=== PATIENT | male | born 1960 | race African-American/Black ===

== ENCOUNTER 2025-02-01 13:25 | Emergency (ER) | payer BC ==
[~2025-02-01] VITALS: Ht 175.3 cm; Wt 115.0 kg
[2025-02-01 14:24] LABS: Basophils # (auto) 0 10 ^3/uL (0-0.2); Eosinophils # (auto) 0.1 10 ^3/uL (0-0.8); Eosinophils % (auto) 2.5 % (0.0-7.0); Hemoglobin 14.5 g/dL (13.5-17.5); Nucleated Red Blood Cells % 0.1 %
[2025-02-01 14:26] LABS: Basophils % (auto) 0.7 % (0.0-2.0); Hematocrit 45.3 % (41.0-53.0); Lymphocytes # (auto) 1.4 10 ^3/uL (0.4-5.4); Mean Corpuscular Hemoglobin 23.4 pg (28.0-32.0); Mean Corpuscular Volume 73.2 fL (80.0-100.0); Monocytes # (auto) 0.5 10 ^3/uL (0-1.3); Monocytes % (auto) 9.7 % (0.0-12.0); Neutrophils # (auto) 3.5 10 ^3/uL (1.6-8.6); Neutrophils % (auto) 62.1 % (37.0-80.0); Platelet Count (auto) 121 10^3/uL (140-450); Red Blood Cells 6.19 10^6/uL (4.5-5.90); Red Cell Distribution Width 15.2 % (11.8-14.3); White Blood Cell 5.6 10^3/uL (4.4-10.8)
[2025-02-01 14:41] LABS: Alanine Aminotransferase 20 U/L (7-40); Albumin 4.4 g/dL (3.2-4.8); Alkaline Phosphatase 76 U/L (46-116); Anion Gap 9 (5-15); Aspartate Aminotransferase 17 U/L (13-40); BUN/Creatinine Ratio 14.2 (10.0-20.0); Bilirubin, Total 0.9 mg/dL (0.2-1.0); Blood Urea Nitrogen 15 mg/dL (9-23); Calcium 9.8 mg/dL (8.7-10.4); Carbon Dioxide 26 mmol/L (20-31); Chloride 105 mmol/L (98-107); Glucose 87 mg/dL (74-106); Lipase 22 U/L (12-53); Potassium 4.1 mmol/L (3.5-5.1); Sodium 140 mmol/L (136-145)
--- NOTE | 2025-02-01 15:01 | DVH ---
CT ABDOMEN AND PELVIS WITHOUT CONTRAST CLINICAL HISTORY: abd pain TECHNIQUE: Multiple contiguous axial images of the abdomen and pelvis without intravenous contrast. T he images were reformatted degenerate coronal and sagittal reconstructions. All CT scans at this medical facility are performed using dose modulation techniques as appropriate t o a performed exam including the following:Automated exposure control was utilized; adjustment of the MA and/or KV according to patient size; and use of iterative reconstruction technique. Radiation Dose Information: CT Dose: CTDI volume is 21.36 mGy. Dose-length product is 1172.31 mGy*cm Comparison: None FINDINGS: Evaluation of the abdomen and pelvis is limited without intravenous contrast. There is a 7 mm calculus in the lower pole of the left kidney. There is no right renal calculus. The re is no hydronephrosis. There is a 1.2 cm cyst in the upper pole of the left kidney. There is no diego dence of a ureteral calculus or hydroureter. Gallbladder is surgically absent. There is fatty infiltration of the liver. The pancreas, adrenal glands, and spleen appear within normal limits. There is no gross evidence of abdominal lymphadenopathy. There is no free fluid or free air. The stomach grossly appears unremarkable. The small and large bowel loops demonstrate normal caliber . A normal appearing appendix is seen in the right lower quadrant abdomen. The abdominal aorta and IVC appear within normal limits. The bladder appears unremarkable for the degree of distention. Pelvic organ appears within normal melchor its. There is no gross evidence of a pelvic mass. There is no free fluid collection. Lung bases are clear. There is no acute osseous abnormality. IMPRESSION: 1. There is no acute process in the abdomen and pelvis. 2. 7 mm nonobstructive left lower pole renal calculus. 3. Hepatic steatosis. HS:Y
[2025-02-01 16:37] VITALS: PULSE 66; RESP 18; O2SAT 94
--- NOTE | 2025-02-01 16:58 | ED.PDOC ---
GI ASSESSMENT HPI Comments 64y M who presents to the ED for chief complaint of abdominal cramping. Pt states he has been having upper abdominal pain for the past few weeks. Pt states the pain is intermittent, cramping in nature , with associated exacerbation of pain with movement such as bending forward to tie his shoes and relieved by rest. Patient states the symptoms last only a few seconds. Pt denies any associated symptoms but otherwise denies nausea, vomiting, diarrhea, fever, cough, chills, dysuria, hematuria, chest pain or shortness of breath. Pt states he notices these cramping like episodes when he moves from sitting to standing or from bending over for a quick second and the pain goes away immediately. Pt states he has noted history of HTN but states he has not seen a PCP in many years. Pt in the ED, has noted BP of 158/97 but otherwise has noted stable vitals with temp of 98.0F, rr 18 , heart rate of 66 and 02 sat of 95% on room air. Pt otherwise denies any other symptoms at this time. Chief Complaint: Abdominal Pain Time Seen by MD: 16:56 Reviewed Notes: Medications, Allergies Allergies: Coded Allergies: NO KNOWN ALLERGIES (Unverified , 02/01/25) Home Meds Active Scripts Dicyclomine Hcl (BENTYL CAPSULE) 10 Mg Cp, 2 CAP PO Q6HP PRN, #30 CAP 11 Refills prn abdominal crampimg Prov:REY RAMIRES MD 02/01/25 Information Source: Patient Mode of Arrival: Ambulatory Brought in by: self Past Medical History PAST MEDICAL HISTORY: HTN Surgical History (Other): bone spurs Family History Family History: Reviewed,noncontributory to illness Social History Smoker: Non-Smoker Alcohol: Denies ETOH Use Drugs: Denies Drug Use Lives In: Home Constitutional: denies: chills, diaphoresis, fatigue, fever, malaise, sweats, weakness, others EENTM: denies: blurred vision, double vision, ear bleeding, ear discharge, ear drainage, ear pain, ear ringing, eye pain, eye redness, hearing loss, mouth pain, mouth swelling, nasal discharge, nose bleeding, nose congestion, nose pain, photophobia, tearing, throat pain, throat swelling, voice changes, others Respiratory: denies: cough, hemoptysis, orthopnea, SOB at rest, shortness of breath, SOB with excertion, stridor, wheezing, others Cardiovascular: denies: chest pain, dizzy spells, diaphoresis, Dyspnea on exertion, edema, irregular heart beat, left arm pain, lightheadedness, palpitations, PND, syncope, others Gastrointestinal: reports: abdominal pain; denies: abdomen distended, blood streaked bowels, constipated, diarrhea, dysphagia, difficulty swallowing, hematemesis, melena, nausea, poor appetite, poor fluid intake, rectal bleeding, rectal pain, vomiting, others Genitourinary: denies: burning, dysuria, flank pain, frequency, hematuria, incontinence, penile discharge, penile sore, pain, testicle pain, testicle swelling, urgency, others Neurological: denies: dizziness, fainting, headache, left sided numbness, left sided weakness, numbness, paresthesia, pre-existing deficit, right sided numbness, right sided weakness, seizure, speech problems, tingling, tremors, weakness, others Musculoskeletal: denies: back pain, gout, joint pain, joint swelling, muscle pain, muscle stiffness, neck pain, others Integumetry: denies: bruises, change in color, change in hair/nails, dryness, laceration, lesions, lumps, rash, wounds, others Allergic/Immunocompromised: denies: Difficulty Healing, Frequent Infections, Hives, Itching, others Hematologic/Lymphatic: denies: anemia, blood clots, easy bleeding, easy bruising, swollen glands, others Endocrine: denies: excessive hunger, excessive sweating, excessive thirst, excessive urination, flushing, intolerance to cold, intolerance to heat, unexplained weight gain, unexplained weight loss, others Psychiatric: denies: anxiety, bipolar disorder, depression, hopeless, panic disorder, schizophrenia, sleepless, suicidal, others All Other Systems: Reviewed and Negative Physical Exam General Appearance: No Apparent Distress HEENT: PERRL/EOMI Neck: Full Range of Motion, Normal Inspection Respiratory: Lungs Clear, No Accessory Muscle Use, No Respiratory Distress, Normal Breath Sounds Cardiovascular: No Edema, No JVD, Regular Rate/Rhythm Breast Exam: Deferred Gastrointestinal: Non Tender, Soft Genitalia: Deferred Pelvic: Deferred Rectal: Deferred Extremities: Normal inspection, Normal range of motion, Non-tender, No pedal edema Neurologic: Alert (Oriented x4), Normal Affect, Normal Mood, Other (Ambulatory. No gross focal deficit.) Cerebellar Function: NOT DONE Reflexes: NOT DONE Skin: Dry, Normal Color, Warm Lymphatic: NOT DONE EKG EKG : Comments Sinus rhythm, rate 69, normal PA interval, QRS prolonged at 142, normal QTC interval, left axis deviation, right bundle-branch block and left anterior fascicular block, anteroseptal T inversion Was a procedure done? Was a procedure done?: No GI differential Dx Differential Diagnosis: Constipation, Gastritis/PUD, Gastroenteritis, Inflammatory BD, Pancreatitis, UTI, Dehydration, Electrolyte Imbalance, Food Poisoning, Bacterial, Viral, Ischemic Bowel, Stress Ulcer, Kidney Stone Other Differential Diagnosis musculoskeletal pain, ACS, MT, angina, arrhythmia, among others X-Ray, Labs, Meds, VS Vital Signs Date Time Temp Pulse Resp B/P (MAP) Pulse Ox O2 Delivery O2 Flow Rate FiO2 02/01/25 18:12 98.7 58 17 150/95 (113) 94 98.7 02/01/25 17:53 69 02/01/25 16:37 66 18 94 Room Air* 0 21 02/01/25 16:37 98.0 66 18 158/97 (117) 94 98.0 02/01/25 13:58 98.0 62 16 137/96 (110) 95 Lab Test 02/01/25 16:35 02/01/25 15:33 02/01/25 14:03 Range/Units Urine Color Yellow Yellow Urine Clarity Clear Clear Urine pH 6.0 5.0-9.0 Urine Specific [place] 1.022 1.001-1.035 Urine Protein Negative Negative Urine Ketones Negative Negative Urine Blood Negative Negative /uL Urine Nitrite Negative Negative Urine Bilirubin Negative Negative Urine Urobilinogen Normal Negative mg/dL Urine Leukocyte Esterase Negative Negative /uL Urine RBC 1 0 - 3 /hpf Urine Microscopic WBC 1 0-3 /HPF Urine Squamous Epithelial Cells Few <5 /hpf Urine Bacteria None seen None Seen /hpf Urine Mucus Few None Seen Urine Glucose Normal Normal mg/dL Troponin I High Sensitivity < 3 L < 3 L </=54 ng/L White Blood Count 5.6 4.4-10.8 10^3/uL Red Blood Count 6.19 H 4.5-5.90 10^6/uL Hemoglobin 14.5 13.5-17.5 g/dL Hematocrit 45.3 41.0-53.0 % Mean Corpuscular Volume 73.2 L 80.0-100.0 fL Mean Corpuscular Hemoglobin 23.4 L 28.0-32.0 pg Mean Corpuscular Hemoglobin Concent 32.0 32.0-36.0 g/dL Red Cell Distribution Width 15.2 H 11.8-14.3 % Platelet Count 121 L 140-450 10^3/uL Mean Platelet Volume 9.4 6.9-10.8 fL Neutrophils (%) (Auto) 62.1 37.0-80.0 % Lymphocytes (%) (Auto) 25.0 10.0-50.0 % Monocytes (%) (Auto) 9.7 0.0-12.0 % Eosinophils (%) (Auto) 2.5 0.0-7.0 % Basophils (%) (Auto) 0.7 0.0-2.0 % Neutrophils # (Auto) 3.5 1.6-8.6 10 ^3/uL Lymphocytes # (Auto) 1.4 0.4-5.4 10 ^3/uL Monocytes # (Auto) 0.5 0-1.3 10 ^3/uL Eosinophils # (Auto) 0.1 0-0.8 10 ^3/uL Basophils # (Auto) 0 0-0.2 10 ^3/uL Nucleated Red Blood Cells 0.1 % Sodium Level 140 136-145 mmol/L Potassium Level 4.1 3.5-5.1 mmol/L Chloride Level 105 98-107 mmol/L Carbon Dioxide Level 26 20-31 mmol/L Anion Gap 9 5-15 Blood Urea Nitrogen 15 9-23 mg/dL Creatinine 1.06 0.700-1.30 mg/dL Glomerular Filtration Rate Calc 77 >90 mL/min BUN/Creatinine Ratio 14.2 10.0-20.0 Serum Glucose 87 74-106 mg/dL Lactic Acid Level 1.4 0.4-2.0 mmol/L Calcium Level 9.8 8.7-10.4 mg/dL Total Bilirubin 0.9 0.2-1.0 mg/dL Aspartate Amino Transferase (AST) 17 13-40 U/L Alanine Aminotransferase (ALT) 20 7-40 U/L Alkaline Phosphatase 76 46-116 U/L B-Type Natriuretic Peptide 29.46 0-100 pg/mL Total Protein 7.0 5.7-8.2 g/dL Albumin 4.4 3.2-4.8 g/dL Lipase 22 12-53 U/L [address] [address] Ph: [phone] DIAGNOSTIC IMAGING Diagnostic Imaging Report : [id number] Signed PATIENT: CORTNEY ANDREWS ACCT: [id number] UNIT: [id number] : 1960 LOC: ER ROOM / BED: / AGE / SEX: 64 / M ADM STATUS: REG ER SERVICE 1346 ORDERING PHYSICIAN: REY RAMIRES MD PROCEDURE(s): ABPL - CT AB PEL WO CON-NO ORAL OR IV REASON: abd pain ORDER NUMBER(s): [id number], ACCESSION NUMBER(s): [id number] CT ABDOMEN AND PELVIS WITHOUT CONTRAST CLINICAL HISTORY: abd pain TECHNIQUE: Multiple contiguous axial images of the abdomen and pelvis without intravenous contrast. The images were reformatted degenerate coronal and sagittal reconstructions. All CT scans at this medical facility are performed using dose modulation techniques as appropriate to a performed exam including the following:Automated exposure control was utilized; adjustment of the MA and/or KV according to patient size; and use of iterative reconstruction technique. Radiation Dose Information: CT Dose: CTDI volume is 21.36 mGy. Dose-length product is 1172.31 mGy*cm Comparison: None FINDINGS: Evaluation of the abdomen and pelvis is limited without intravenous contrast. There is a 7 mm calculus in the lower pole of the left kidney. There is no right renal calculus. There is no hydronephrosis. There is a 1.2 cm cyst in the upper pole of the left kidney. There is no evidence of a ureteral calculus or hydroureter. Gallbladder is surgically absent. There is fatty infiltration of the liver. The pancreas, adrenal glands, and spleen appear within normal limits. There is no gross evidence of abdominal lymphadenopathy. There is no free fluid or free air. The stomach grossly appears unremarkable. The small and large bowel loops demonstrate normal caliber. A normal appearing appendix is seen in the right lower quadrant abdomen. The abdominal aorta and IVC appear within normal limits. The bladder appears unremarkable for the degree of distention. Pelvic organ appears within normal limits. There is no gross evidence of a pelvic mass. There is no free fluid collection. Lung bases are clear. There is no acute osseous abnormality. IMPRESSION: 1. There is no acute process in the abdomen and pelvis. 2. 7 mm nonobstructive left lower pole renal calculus. 3. Hepatic steatosis. HS:Y ATED BY: HECTOR JURADO MD DICTATED DATE/TIME: 02/01/251458 SIGNED BY: HECTOR JURADO MD SIGNED DATE/TIME: 02/01/251458 CC: X-Ray, Labs, Meds, VS Comment 64-year-old male with a history of hypertension complaining of abdominal cramping. Vitals remarkable for BP 137/96 Exam unremarkable Rhythm strip independently interpreted by me: Sinus rhythm, rate 62, no ectopy. CT abdomen and pelvis IMPRESSION: 1. There is no acute process in the abdomen and pelvis. 2. 7 mm nonobstructive left lower pole renal calculus. 3. Hepatic steatosis. CBC, CMP, lipase, UA, BNP and 2 serial troponins unremarkable for any abnormality of acute significance Patient declined any pain medication in the ED, stating he was not in any discomfort at rest. On re-evaluation, patient was well-appearing, pain-free with stable vitals. Patient appears stable for discharge with close outpatient follow-up to establish care with a primary physician. Rx Bentyl. Patient provided with referral to establish care with a primary physician. Time of 1ST Reevaluation: 17:30 Reevaluation 1ST: Unchanged Time of 2ND Reevaluation: 17:39 Reevaluation 2ND: Improved Patient Education/Counseling: Diagnosis, Treatment Family Education/Counseling: No Family Present Additional Information -Reviewed patient's previous visit(s): - The following tests were ordered, and results were reviewed by me: cbc, bmp, lipase,ua, ct abd pelvis non contrast, lactic acid, bnp. tropx2. - Additional information was gathered from interviewing the following independent Historian: patient - I reviewed and agreed with the following test results read by other provider: radiologist - I discussed treatments and results with medical personnel and: patient Comprehensive systems review obtained and negative except for what is stated in the HPI. Departure 1 Departure Time of Disposition: 17:39 Impression: Primary Impression: Abdominal cramping Disposition: 01 HOME / SELF CARE / HOMELESS Condition: Stable Referrals: JOSE BONILLA MD Additional Instructions: Your blood tests, including screening tests for heart attack and heart failure were unremarkable. Your urine test was unremarkable. Your EKG was unremarkable. Your CT scan did not show any abnormality that would explain your abdominal cramping. I have enclosed the report below. Follow-up in 1-2 days to establish care with a primary physician for further evaluation. I have prescribed medication for abdominal cramping to take as needed. e-Prescriptions Dicyclomine Hcl (BENTYL CAPSULE) 10 Mg Cp 2 CAP PO Q6HP PRN, #30 CAP 11 Refills prn abdominal crampimg Prov: REY RAMIRES MD 02/01/25 Discharged With: Self Critical Care Note Critical Care Time?: No Stability Stability form required: No Heart Score Heart Score: Heart Score Response (Comments) Value History N/A 0 EKG N/A 0 Age N/A 0 Risk Factors N/A 0 Troponin N/A 0 Total 0 I personally scribed for REY RAMIRES MD ([email or web address]) on 02/01/25 at 16:58. Electronically submitted by Peña Castillo ([email or web address]). I personally scribed for REY RAMIRES MD ([email or web address]) on 02/01/25 at 17:01. Electronically submitted by Peña Castillo ([email or web address]). REY RAMIRES MD Feb 01, 2025 16:58
[2025-02-01 16:59] LABS: Urine Bacteria None Seen /hpf (None Seen)
[2025-02-01 17:08] LABS: Urine Blood Negative /uL (Negative); Urine Clarity Clear (Clear); Urine Color Yellow (Yellow); Urine Mucus FEW (None Seen); Urine Protein, UAD Negative (Negative); Urine Specific Gravity 1.022 (1.001-1.035); Urine Squamous Epithelial Cell FEW /hpf (<5); Urine Urobilinogen Normal (Negative); Urine WBC 1 /HPF (0-3)
[2025-02-01] MEDS ORDERED: DICY10CA PO (17:45)
[2025-02-01 18:12] VITALS: BP 150/95; PULSE 58; RESP 17; TEMP 98.7; O2SAT 94
--- NOTE | 2025-02-02 13:01 | ECG ---
[facility] Test Date: 2025-02-01 Test Time: 17:53:19 Pat Name: CORTNEY ANDREWS Department: ER Room: Gender: M Manufacturing Baker: LUIS : 1960 Requested By: REY MAYO Order Number: [id number] Reading MD: Marek Mott Measurements Intervals [place] Rate: 69 P: 18 UT: 167 QRS: -84 QRSD: 142 T: 21 QT: 403 QTc: 432 Interpretive Statements Sinus rhythm RBBB and LAFB Electronically Signed On 02-03-2025 19:12:41 PDT by Marek Mott Please click the below link to view image of tracing.
== END 2025-02-01 18:13 | disposition home or self-care (01) ==
LOC: ER 13:25
DX: R10.10 Upper abdominal pain, unspecified (principal); I10 Essential (primary) hypertension; R06.02 Shortness of breath
CPT/HCPCS: 36415; 74176; 80053; 81001; 83605; 83690; 83880; 84484; 85025; 93005